=== PATIENT | male | born 1960 | race Caucasian/White ===

== ENCOUNTER → 2023-10-23 07:04 | Outpatient (REF) | payer OTHER, SELFPAY | LOC: HWRCS 07:04 | PROVIDERS: ATTENDING PHYSICIAN Internal Medicine Cardiovascular Disease; FAMILY PHYSICIAN Family Medicine | DX: R55 Syncope and collapse (principal) | CPT/HCPCS: 93306 ==

== ENCOUNTER → 2023-12-12 06:48 | Outpatient (REF) | payer OTHER, SELFPAY | LOC: RSP 06:48 | PROVIDERS: ATTENDING PHYSICIAN Nurse Practitioner; FAMILY PHYSICIAN Family Medicine | DX: Z95.810 Presence of automatic (implantable) cardiac defibrillator (principal); I46.9 Cardiac arrest, cause unspecified; I47.19 Other supraventricular tachycardia; Z79.899 Other long term (current) drug therapy | CPT/HCPCS: 94727; 94729; 94010 ==

== ENCOUNTER → 2024-12-22 07:52 | Outpatient (REF) | payer OTHER, SELFPAY | LOC: RCS 07:52 | PROVIDERS: ATTENDING PHYSICIAN Internal Medicine Cardiovascular Disease; FAMILY PHYSICIAN Family Medicine | DX: I42.2 Other hypertrophic cardiomyopathy (principal) | CPT/HCPCS: 93306 ==